=== PATIENT | female | born 2000 | race Caucasian/White ===

== ENCOUNTER 2021-09-09 13:53 | Emergency (ER) | payer OTHER ==
[~2021-09-09] VITALS: Ht 162.6 cm; Wt 49.9 kg
--- NOTE | 2021-09-09 14:15 | NUR ---
BIB STAFF [facility]/O [facility] PAIN STARTED 1 [employer]BER. NEW ALLERGY TO [place] NOTED. NO SOB NOTED.
--- NOTE | 2021-09-09 14:18 | NUR ---
AT BEDSIDE FOR EVAL.
[2021-09-09] MEDS ORDERED: diphenhydrAMINE HCL 50 MG/ML VIAL ONE (14:31)
[2021-09-09] MEDS ORDERED: DIPH25CA83 PO (14:32)
[2021-09-09] MEDS ORDERED: LORA-259 PO (14:32)
[2021-09-09] MEDS ORDERED: LORAZEPAM INJ 2 MG/ML VIAL ONE (14:33)
--- NOTE | 2021-09-09 14:40 | NUR ---
Daniel malik in [facility] - 09/09/21 at 1440 by [facility] x-ray tech at the bedside
--- NOTE | 2021-09-09 14:44 | NUR ---
Patient discharged to home in stable condition.RX Written and verbal after care instructions given. Patient verbalizes understanding of instruction. PT ambulatory with a steady gait; DC WITH FATHER
[2021-09-09] MEDS: LORAZEPAM INJ 2 MG/ML VIAL IM ONE (14:45)
[2021-09-09] MEDS: diphenhydrAMINE HCL 50 MG/ML VIAL IM ONE (14:45)
[2021-09-09 14:47] VITALS: BP 148/100
== END 2021-09-09 14:48 | disposition home or self-care (01) ==
LOC: ER 14:02
DX: G24.02 Drug induced acute dystonia (principal); R68.84 Jaw pain; Z88.8 Allergy status to other drugs, medicaments and biological substances
CPT/HCPCS: 96372; 99284; J1200; J2060